=== PATIENT | female | born 2000 | race Two or more races ===

== ENCOUNTER 2021-02-12 21:51 | Emergency (ER) | payer OTHER ==
[~2021-02-12] VITALS: Ht 170.2 cm; Wt 108.9 kg
[2021-02-12 21:52] VITALS: BP 134/85
[2021-02-12] MEDS ORDERED: cefTRIAXone SOD 1,000 MG VL IM ONE (23:00)
== END 2021-02-13 00:47 | disposition home or self-care (01) ==
LOC: ER 21:53
DX: L02.411 Cutaneous abscess of right axilla (principal); M54.2 Cervicalgia
CPT/HCPCS: 70490; 96372; 99284; J0696